=== PATIENT | female | born 1980 | race Caucasian/White ===

== ENCOUNTER 2020-04-20 05:53 | Inpatient (IN) | payer BC ==
[~2020-04-20] VITALS: Ht 167.6 cm; Wt 85.0 kg
[2020-04-20] MEDS ORDERED: CHLORHEXIDINE 15 ML UDC MM STA (06:41)
[2020-04-20] MEDS ORDERED: CHLORHEXIDINE 15 ML UDC ONE (06:45)
[2020-04-20] MEDS ORDERED: LIDOCAINE/PF 1%-EPI 1:200K, 30 ML ONE (06:49)
[2020-04-20] MEDS ORDERED: BUPIVACAINE/PF 0.25% ONE (06:50)
[2020-04-20] MEDS ORDERED: BUPIVACAINE/PF 0.5% ONE (06:50)
[2020-04-20] MEDS ORDERED: EPINEPHRINE 1 MG/ML, 1ML ONE (06:50)
[2020-04-20] MEDS ORDERED: BACITRACIN 50,000 UNIT ONE (06:50)
[2020-04-20] MEDS ORDERED: INDIGO CARMINE 0.8%, 5ML ONE (06:50)
[2020-04-20] MEDS ORDERED: IBUP-1223 PO (06:52)
[2020-04-20] MEDS ORDERED: MULT-464 PO (06:52)
[2020-04-20] MEDS ORDERED: MODA100T2 PO (06:52)
[2020-04-20] MEDS ORDERED: CELE200C PO (06:52)
[2020-04-20] MEDS ORDERED: LEVO100T5 PO (06:52)
[2020-04-20] MEDS ORDERED: GABA800T5 PO (06:52)
[2020-04-20 06:58] LABS: HCG UR SG 1.011 (1.003-1.030)
[2020-04-20 06:59] VITALS: BP 121/78
[2020-04-20] MEDS ORDERED: LACTATED RINGERS 1,000 ML IV SCH (07:00)
[2020-04-20] MEDS ORDERED: ALBUTEROL INH (07:13)
[2020-04-20 07:15] LABS: BASOPHILS % (AUTO) 1 % (0-1); EOSINOPHILS % (AUTO) 1 % (1-7); LYMPHOCYTES % (AUTO) 29 % (22-44); MEAN CORPUSCULAR HEMOGLOBIN 31.1 pg (27.0-34.8); MEAN CORPUSCULAR HGB CONC 33.2 g/dL (32.4-35.8); MEAN PLATELET VOLUME 8.5 fL (7.4-10.4); MONOCYTES % (AUTO) 7 % (2-9); NEUTROPHILS % (AUTO) 62 % (42-75); PLATELET COUNT 238 x10^3/uL (130-400)
[2020-04-20 07:17] LABS: MD NO
[2020-04-20] MEDS ORDERED: MIDAZOLAM 1 MG/ML, 2ML ONE (07:21)
[2020-04-20] MEDS ORDERED: FENTANYL PF 250 MCG/5ML ONE (07:21)
[2020-04-20] MEDS ORDERED: PROPOFOL 50 ML ONE ×2 (07:21→09:53)
[2020-04-20] MEDS ORDERED: VANCOMYCIN 1,000 MG ONE (08:13)
[2020-04-20] MEDS ORDERED: DEXAMETHASONE 4 MG/ML, 5ML ONE (08:56)
[2020-04-20] MEDS ORDERED: ACETAMINOPHEN 325 MG TABLET PO PRN (09:00)
[2020-04-20] MEDS ORDERED: PROMETHAZINE 25 MG/ML, 1ML IVPush PRN (09:00)
[2020-04-20] MEDS ORDERED: FENTANYL PF 100 MCG/2ML IV PRN (09:00)
[2020-04-20] MEDS ORDERED: HYDROmorphone 1 MG/ML, 1ML INJ IVPush PRN (09:00)
[2020-04-20] MEDS ORDERED: DIAZEPAM 5 MG/ML, 2ML IVPush PRN (09:00)
[2020-04-20] MEDS ORDERED: EPHEDRINE 50 MG/ML, 1ML IM PRN (09:00)
[2020-04-20] MEDS ORDERED: EPHEDRINE 50 MG/ML, 1ML IVPush PRN (09:00)
[2020-04-20] MEDS ORDERED: DIPHENHYDRAMINE 50 MG/ML, 1ML IVPush PRN (09:00)
[2020-04-20] MEDS ORDERED: MIDAZOLAM 1 MG/ML, 2ML IV PRN (09:00)
[2020-04-20] MEDS ORDERED: MEPERIDINE/PF 25MG/0.5ML IVPush PRN (09:00)
[2020-04-20] MEDS ORDERED: OXYcodone 5 MG/5 ML ORAL.SOL UDC PO PRN (09:00)
[2020-04-20] MEDS ORDERED: ONDANSETRON 2MG/ML, 2ML IVPush PRN (09:00)
[2020-04-20] MEDS ORDERED: LABETALOL 5MG/ML, 20ML IV PRN (09:00)
[2020-04-20] MEDS ORDERED: PROPOFOL 10 MG/ML, 20ML ONE (09:52)
[2020-04-20] MEDS ORDERED: ONDANSETRON 2MG/ML, 2ML ONE (09:52)
[2020-04-20] MEDS ORDERED: DEXAMETHASONE 4 MG/ML, 1ML ONE ×3 (09:52)
[2020-04-20] MEDS ORDERED: HYDROmorphone 1 MG/ML, 1ML INJ ONE (11:00)
[2020-04-20] MEDS ORDERED: PROMETHAZINE 25 MG/ML, 1ML ONE (11:01)
[2020-04-20 12:23] VITALS: BP 113/69
[2020-04-20] MEDS ORDERED: VANCOMYCIN PER PHARMACY MC PRN (13:30)
[2020-04-20] MEDS ORDERED: HYDROcodone/APAP 5/325 TABLET PO PRN (13:30)
[2020-04-20] MEDS ORDERED: ONDANSETRON 2MG/ML, 2ML IV PRN (13:30)
[2020-04-20] MEDS ORDERED: PHARMACOKINETIC MONITORING MC PRN (14:00)
[2020-04-20] MEDS: D5%-0.9% NACL+KCL 20MEQ 1,000 ML IV SCH ×2 (14:02→22:58)
[2020-04-20] MEDS: DEXAMETHASONE 4 MG/ML, 1ML IVPush SCH ×2 (14:02→20:29)
[2020-04-20] MEDS: VANCOMYCIN 1,600 MG in SODIUM CHLORIDE 0.9% 250 ML IV SCH (16:51)
[2020-04-20] MEDS: GABAPENTIN 300 MG CAPSULE PO SCH (20:30)
[2020-04-20 21:21] VITALS: BP 108/54
[2020-04-21 00:30] VITALS: BP 119/68
[2020-04-21] MEDS: DEXAMETHASONE 4 MG/ML, 1ML IVPush SCH (02:29)
[2020-04-21 03:49] VITALS: BP 113/72
[2020-04-21] MEDS: VANCOMYCIN 1,600 MG in SODIUM CHLORIDE 0.9% 250 ML IV SCH (05:07)
[2020-04-21 05:26] LABS: CREATININE 0.59 mg/dL (0.55-1.02)
[2020-04-21] MEDS: D5%-0.9% NACL+KCL 20MEQ 1,000 ML IV SCH ×2 (06:28→14:48)
[2020-04-21 06:52] VITALS: BP 126/80
[2020-04-21] MEDS ORDERED: SENNA/DOCUSATE TABLET PO SCH (09:00)
[2020-04-21] MEDS: GABAPENTIN 300 MG CAPSULE PO SCH (09:06)
[2020-04-21] MEDS: OXYcodone IR 5MG TABLET PO PRN ×2 (09:07→09:10)
[2020-04-21 14:18] VITALS: BP 120/73
== END 2020-04-21 15:26 | disposition home or self-care (01) | DRG 473 ==
LOC: OUT 05:53 → 4NE 12:07 → OUT 12:40
PROVIDERS: ADMIT Orthopaedic Surgery Orthopaedic Surgery of the Spine; ATTEND Orthopaedic Surgery Orthopaedic Surgery of the Spine
PROC: 0RB Upper Joints, Excision (ICD-10-PCS; 2020-04-20)
PROC: 4A11X4G Monitoring of Peripheral Nervous Electrical Activity, Intraoperative, External Approach (ICD-10-PCS; 2020-04-20)
PROC: B01B1ZZ Fluoroscopy of Spinal Cord using Low Osmolar Contrast (ICD-10-PCS; 2020-04-20)
PROC: 0RG24A0 Fusion of 2 or more Cervical Vertebral Joints with Interbody Fusion Device, Anterior Approach, Anterior Column, Percutaneous Endoscopic Approach (ICD-10-PCS; principal; 2020-04-20 07:30)
DX: M50.122 Cervical disc disorder at C5-C6 level with radiculopathy (principal); M50.123 Cervical disc disorder at C6-C7 level with radiculopathy; M53.2X2 Spinal instabilities, cervical region; Z20.828 Contact with and (suspected) exposure to other viral communicable diseases
CPT/HCPCS: 36415; 72040; 72050; S0020; 81025; 82565; 84520; 85025; 87635; 95938; 95941; C1713; G0378; J0171; J1100; J1170; J2250; J2270; J2405; J2550; J2704; J3010; J3370; C1762; C1889; J3480; J7050; J7120